=== PATIENT | male | born 1960 | race American Indian/Alaskan Native ===

== ENCOUNTER 2017-12-06 13:30 | Outpatient (CLI) | payer BC ==
--- NOTE | 2017-12-06 16:46 | XRay Report ---
XRAY LUMBAR SPINE THREE VIEWS: 12/06/17 13:30:00 CLINICAL: Radicular pain. FINDINGS: Mild levoscoliosis centered at L4-5. Normal vertebral body height and alignment on the lateral view. However, slight L4 on L5 left laterolisthesis. Disc space narrowing at L5-S1. Anterior osteophytes and lateral osteophytes from L3-4 through L5-S1. The pedicles are intact. No fracture. Normal soft tissues. IMPRESSION: 1. Levoscoliosis and moderate degenerative disc disease from L3-4 through L5-S1. 2. Suspect neural foraminal stenosis at L5-S1. 3. Grade I L4 on L5 left laterolisthesis.
--- NOTE | 2017-12-06 20:13 | XRay Report ---
FINAL REPORT PROCEDURE: XR CHEST ROUTINE 2V TECHNIQUE: PA and lateral chest radiographs were obtained. CPT 30679 HISTORY: COUGH COMPARISON: No prior studies are available for comparison. FINDINGS: Heart: Normal. Mediastinum/Vessels: Normal. Lungs/Pleural space: Normal. Bony thorax: No acute osseous abnormality. Other: IMPRESSION: Normal examination.
== END 2017-12-06 13:31 | disposition home or self-care (01) ==
LOC: SPVIMAG 13:30
PROVIDERS: ATTEND Internal Medicine
DX: M41.87 Other forms of scoliosis, lumbosacral region (principal); M51.37 Other intervertebral disc degeneration, lumbosacral region; M54.16 Radiculopathy, lumbar region; R05 Cough
CPT/HCPCS: 71046; 72100